=== PATIENT | female | born 1940 | race Caucasian/White ===

== ENCOUNTER 2021-01-02 15:02 | Emergency (ER) | payer MEDICARE ==
[~2021-01-02] VITALS: Ht 157.5 cm; Wt 50.9 kg
[~2021-01-02 15:02] MED LIST: ALBU2.5V12 NEB; ALEN70TA80 PO; AMLO5TAB16 PO; APIX5TAB3 PO; ASCO-134 PO; BUDE10.26 INH; CALC-1215 PO; CARV25TA2 PO; ESZO2TAB31 PO; IPRA3AMP31 IH; LACT1CAP26 PO; LEVO750T46 PO; MULT-1085 PO; OMEG1CAP13 PO; OMEP-84 PO; TRAZ-91 PO
[2021-01-02] MEDS ORDERED: ondansetron/PF 4mg/2ml inj IV ONE (16:50)
[2021-01-02] MEDS ORDERED: CASIRIVIMAB/IMDEVIMAB inject. 10 ML in normal saline 100ml IV soln 100 ML IV ONE (16:50)
[2021-01-02] MEDS ORDERED: ONDA4TAB6 PO (16:50)
[2021-01-02 17:45] VITALS: BP 147/57
== END 2021-01-02 18:25 | disposition home or self-care (01) ==
LOC: ER 15:03
DX: U07.1 COVID-19 (principal); R63.0 Anorexia; R50.9 Fever, unspecified; R51.9 Headache, unspecified; R05 Cough; I11.0 Hypertensive heart disease with heart failure; I50.9 Heart failure, unspecified; J44.9 Chronic obstructive pulmonary disease, unspecified; Z87.01 Personal history of pneumonia (recurrent); Z85.9 Personal history of malignant neoplasm, unspecified; Z98.890 Other specified postprocedural states; Z79.2 Long term (current) use of antibiotics; Z79.899 Other long term (current) drug therapy
CPT/HCPCS: 71045; 87635; 96374; 99284; C9803; J2405; M0243; Q0244

== ENCOUNTER 2021-02-02 09:49 | Emergency (ER) | payer MEDICARE ==
[~2021-02-02] VITALS: Ht 152.4 cm; Wt 62.0 kg
[~2021-02-02 09:49] MED LIST changes: +ONDA4TAB6 PO
[2021-02-02 10:01] VITALS: BP 155/64
[2021-02-02 10:44] LABS: BASOPHILS % (AUTO) 0.4 % (0-1); EOSINOPHILS # (AUTO) 0.2 X10'3 (0-0.9); EOSINOPHILS % (AUTO) 2.1 % (0-6); HEMATOCRIT 36.4 % (35.0-45.0); HEMOGLOBIN 12.1 g/dl (12.0-16.0); LYMPHOCYTES # (AUTO) 1.6 X10'3 (1.1-4.8); MEAN CORPUSCULAR HEMOGLOBIN 32.1 PG (27.0-31.0); MEAN CORPUSCULAR HGB CONC 33.3 g/dL (33.0-36.5); MEAN CORPUSCULAR VOLUME 96.4 FL (78-98); MEAN PLATELET VOLUME 8.6 FL (7.4-10.4); MONOCYTES # (AUTO) 0.7 X10'3 (0-0.9); NEUTROPHILS # (AUTO) 6.1 X10'3 (1.8-7.7); NEUTROPHILS % (AUTO) 70.5 % (42-75); PLATELET COUNT 224 X10'3 (140-440); RED BLOOD COUNT 3.78 X10'6 (4.20-5.60); RED CELL DISTRIBUTION WIDTH 14.4 % (11.5-14.5); WHITE BLOOD COUNT 8.6 X10'3 (4.5-11.0)
[2021-02-02 10:53] LABS: ALANINE AMINOTRANSFERASE 19 U/L (12-78); ALBUMIN 2.8 G/DL (3.4-5.0); ALBUMIN/GLOBULIN RATIO 0.6 (1.1-1.5); ALKALINE PHOSPHATASE 66 IU/L (46-116); ANION GAP 8 (8-16); ASPARTATE AMINO TRANSFERASE 19 U/L (10-37); BILIRUBIN,TOTAL 0.2 MG/DL (0.1-1.0); BLOOD UREA NITROGEN 16 MG/DL (7-18); BUN/CREATININE RATIO 16.7 (6.6-38.0); CALCIUM 9.1 MG/DL (8.5-10.1); CHLORIDE 106 MMOL/L (99-107); CREATININE 0.96 MG/DL (0.40-0.90); GLUCOSE 96 MG/DL (70-104); POTASSIUM 4.1 MMOL/L (3.5-5.1); SODIUM 142 MMOL/L (135-145); TOTAL CARBON DIOXIDE 28.1 MMOL/L (24-32); TOTAL PROTEIN 7.4 G/DL (6.4-8.2); eGFR 56 ML/MIN
[2021-02-02] MEDS ORDERED: AMOX-117 PO (12:10)
[2021-02-02] MEDS ORDERED: LISI5TAB22 PO ×2 (12:10→12:17)
[2021-02-02] MEDS ORDERED: DOXY-1 PO (12:17)
== END 2021-02-02 12:20 | disposition home or self-care (01) ==
LOC: ER 09:49
DX: J18.9 Pneumonia, unspecified organism (principal); I10 Essential (primary) hypertension; I11.0 Hypertensive heart disease with heart failure; J44.9 Chronic obstructive pulmonary disease, unspecified
CPT/HCPCS: 36415; 71045; 80053; 84484; 85025; 93005; 99285

== ENCOUNTER 2021-12-11 13:37 | Outpatient (CLI) | payer MEDICARE ==
[~2021-12-11 13:37] MED LIST changes: -LEVO750T46 PO; +LEVO750T68 PO; +LISI5TAB22 PO
== END 2021-12-11 23:59 | disposition home or self-care (01) ==
LOC: RAD 13:37
PROVIDERS: ATTEND Family Medicine
DX: R13.14 Dysphagia, pharyngoesophageal phase (principal); K21.9 Gastro-esophageal reflux disease without esophagitis
CPT/HCPCS: 74230

== ENCOUNTER 2023-11-04 11:29 | Day surgery (SDC) | payer MEDICARE ==
[~2023-11-04] VITALS: Ht 157.5 cm; Wt 43.6 kg
[~2023-11-04 11:29] MED LIST changes: +OMEG-5 PO; -OMEG1CAP13 PO
[2023-11-04 12:00] VITALS: BP 150/72; PULSE 71; RESP 16
[2023-11-04] MEDS ORDERED: flumazenil 0.1 mg/ml inj. 10mL vial IV ONE (12:15)
[2023-11-04] MEDS ORDERED: midazolam 1 mg/ML 2ml injection ONE (12:22)
[2023-11-04] MEDS ORDERED: fentaNYL/PF 50MCG/1 ML 2ML syringe ONE (12:22)
[2023-11-04] MEDS ORDERED: propofol inj 20 ML IV ONE (12:22)
[2023-11-04 12:39] VITALS: BP 121/52; PULSE 66; RESP 18; O2SAT 87
[2023-11-04 12:49] VITALS: BP 132/60; PULSE 65; RESP 18; O2SAT 99
[2023-11-04 12:59] VITALS: BP 108/57; PULSE 62; RESP 16; O2SAT 99
[2023-11-04] MEDS ORDERED: AMIL5TAB8 PO (12:59)
[2023-11-04] MEDS ORDERED: ONDA-243 PO (13:00)
[2023-11-04] MEDS ORDERED: LACT1CAP65 PO (13:01)
[2023-11-04] MEDS ORDERED: PANT-47 PO (13:02)
[2023-11-04] MEDS ORDERED: AZIT-164 (13:05)
[2023-11-04] MEDS ORDERED: DESV25TA PO (13:05)
[2023-11-04] MEDS ORDERED: METH2.5T55 PO (13:05)
[2023-11-04] MEDS ORDERED: FOLI1TAB27 PO (13:05)
[2023-11-04] MEDS ORDERED: ROSU40TA PO (13:06)
[2023-11-04] MEDS ORDERED: PSYL0.4C2 PO (13:07)
[2023-11-04 13:09] VITALS: BP 139/65; PULSE 58; RESP 16; O2SAT 96
[2023-11-04 13:15] VITALS: BP 128/66; PULSE 59; RESP 16; O2SAT 97
== END 2023-11-04 13:35 | disposition home or self-care (01) ==
LOC: GI LAB 11:29
PROVIDERS: ATTEND Internal Medicine Gastroenterology
DX: R10.13 Epigastric pain (principal); R63.4 Abnormal weight loss; K29.70 Gastritis, unspecified, without bleeding; K31.89 Other diseases of stomach and duodenum; I10 Essential (primary) hypertension; I25.10 Atherosclerotic heart disease of native coronary artery without angina pectoris; J45.909 Unspecified asthma, uncomplicated; Z68.1 Body mass index [BMI] 19.9 or less, adult; Z88.8 Allergy status to other drugs, medicaments and biological substances
CPT/HCPCS: 43239; A4620; J2250; J2704; J3010; J3490; J7030; Z7512; 43235

== ENCOUNTER → 2024-08-18 | Day surgery (SDC) | payer MEDICARE ==
[~2024-08-18] VITALS: Ht 154.9 cm; Wt 45.5 kg
[~2024-08-18] MED LIST changes: -ALBU2.5V12 NEB; -ALEN70TA80 PO; +AMLO2.5T5 PO; -AMLO5TAB16 PO; -APIX5TAB3 PO; +AZIT-164; -BUDE10.26 INH; +CYAN250010 PO; +DESV25TA PO; -ESZO2TAB31 PO; -IPRA3AMP31 IH; -LACT1CAP26 PO; +LACT1CAP65 PO; +LEVA0.3129; -LEVO750T68 PO; +LIDOcaine 1%/PF 5ML 10 MG/ML VIAL ONE; -LISI5TAB22 PO; -OMEP-84 PO; -ONDA4TAB6 PO; +PANT-47 PO; +PSYL0.4C2 PO; +ROSU40TA PO; +SUCR1TAB PO; +SULF500T46 PO; +fentaNYL/PF 50MCG/1 ML 2ML syringe ONE; +propofol inj 20 ML IV ONE; +simethicone 40mg/0.6ml oral drops 30ml ONE
[2024-08-18 09:20] VITALS: BP 166/64; PULSE 76; RESP 22
[2024-08-18 11:15] VITALS: BP 125/55; PULSE 71; RESP 16; O2SAT 97
[2024-08-18 11:20] VITALS: BP_SYST 0
[2024-08-18 11:25] VITALS: BP 121/52; PULSE 64; RESP 17; O2SAT 97
[2024-08-18 11:35] VITALS: BP 125/51; PULSE 62; RESP 16; O2SAT 96
[2024-08-18 11:45] VITALS: BP 129/53; PULSE 58; RESP 14; O2SAT 93
== END | disposition home or self-care (01) ==
LOC: GI LAB 08:51
PROVIDERS: ATTEND Internal Medicine Gastroenterology
DX: R19.4 Change in bowel habit (principal); K63.89 Other specified diseases of intestine; K57.30 Diverticulosis of large intestine without perforation or abscess without bleeding; K64.8 Other hemorrhoids; K63.0 Abscess of intestine; K29.70 Gastritis, unspecified, without bleeding; J44.9 Chronic obstructive pulmonary disease, unspecified; I10 Essential (primary) hypertension; Z98.890 Other specified postprocedural states
CPT/HCPCS: 43239; 45378; A4620; J2704; J3010; J3490; J7040; Z7512